=== PATIENT | female | born 1930 | race Caucasian/White ===

== ENCOUNTER 2017-04-08 07:38 | Inpatient (IN) | payer MEDICARE, BC ==
[2017-04-08] MEDS ORDERED: Aspirin 81 MG Tab.EC PO SCH (08:00)
--- NOTE | 2017-04-08 08:17 | EDM.PDOC ---
<Nava Beasley - Last Filed: 04/08/17 08:12> ED HPI GENERAL MEDICAL PROBLEM - General Stated Complaint: NAUSEA Time Seen by Provider: 04/08/17 08:00 Source of Information: Reports: Patient History Limitations: Reports: No Limitations - History of Present Illness INITIAL COMMENTS - FREE TEXT/NARRATIVE: Has been losing weight for several months and is scheduled for EGD on Thursday. On thursday she ate breakfast and then she became nauseated and has not been able to keep things down since. She feels weak and nauseated. CT scans have been negative in the recent past. No edema or SOB with it. No diarrhea or constipation. Doesn't feel that she has had a fever. Onset: Gradual Location: Reports: Abdomen Associated Symptoms: Denies: Fever/Chills, Shortness of Breath - Related Data Allergies Allergy/AdvReac Type Severity Reaction Status Date / Time No Known Allergies Allergy Verified 04/08/17 08:30 Home Meds: Home Meds Aspirin [Abdiel Chewable Aspirin] 81 mg PO DAILY 12/14/13 [History] Ferrous Sulfate [Iron] 325 mg PO DAILY 12/14/13 [History] Lactobacillus Acidophilus [Acidophilus Lactobacillus] 1 tab PO DAILY 12/14/13 [ History] Lutein 1 tab PO DAILY 12/14/13 [History] Metoprolol Succinate [Toprol XL 100mg] 100 mg PO DAILY 12/14/13 [History] Metoprolol Succinate [Toprol XL] 50 mg PO BEDTIME 12/14/13 [History] Quinapril [Accupril] 20 mg PO DAILY 12/14/13 [History] atorvaSTATin [Lipitor] 40 mg PO BEDTIME 12/14/13 [History] metFORMIN HCl [Metformin HCl] 500 mg PO BIDM 12/15/13 [History] Past Medical History Gastrointestinal History: Reports: Other (See Below) (weight loss) Social & Family History - Tobacco Use Second Hand Smoke Exposure: No - Recreational Drug Use Recreational Drug Use: No - Living Situation & Occupation Living situation: Reports: Occupation: Retired ED ROS GENERAL - Review of Systems Review Of Systems: See Below Constitutional: Denies: Fever, Chills Respiratory: Denies: Shortness of Breath, Cough Cardiovascular: Denies: Chest Pain GI/Abdominal: Reports: Abdominal Pain, Nausea, Vomiting, Other (weight loss). Denies: Constipation, Diarrhea : Denies: Dysuria, Flank Pain, Frequency Musculoskeletal: Denies: Back Pain Skin: Denies: Rash Neurological: Reports: No Symptoms ED EXAM, GI/ABD - Physical Exam Exam: See Below Exam Limited By: No Limitations General Appearance: Alert, Mild Distress Ears: Normal External Exam, Normal Canal Nose: Normal Inspection Throat/Mouth: Normal Inspection, Normal Oropharynx Head: Atraumatic, Normocephalic Neck: Normal Inspection, Supple, Non-Tender, Full Range of Motion Respiratory/Chest: No Respiratory Distress, Lungs Clear, Normal Breath Sounds Cardiovascular: Regular Rate, Rhythm, No Edema, Diastolic Murmur GI/Abdominal: Normal Bowel Sounds, Soft, Tenderness. No: Distention, Guarding, Rebound Back Exam: Normal Inspection, Full Range of Motion Extremities: Normal Inspection, Normal Range of Motion, No Pedal Edema, Normal Capillary Refill Neurological: Alert, Oriented Skin Exam: Warm, Dry, Intact Course - Vital Signs Last Recorded V/S: Last Vital Signs Temp 98.3 F 04/08/17 08:04 Pulse 113 H 04/08/17 08:04 Resp 18 04/08/17 08:04 BP 116/84 04/08/17 08:04 Pulse Ox 96 04/08/17 08:04 - Orders/Labs/Meds Orders: Active Orders 24 hr Category Date Time Status Patient Status Manage Transfer [TRANSFER] Routine ADT 04/08/17 09:43 Ordered Abdomen 2V AP Flat Upright [CR] Stat Exams 04/08/17 08:11 Taken Resuscitation Status Routine Resus Stat 04/08/17 09:44 Ordered Labs: Laboratory Tests 04/08/17 04/08/17 04/08/17 Range/Units 08:10 08:10 08:27 WBC 9.8 (5.0-10.0) 10^3/uL RBC 3.61 L (4.00-5.50) 10^6/uL Hgb 10.4 L (12.0-16.0) g/dL Hct 31.4 L (37.0-47.0) % MCV 87.0 (82.0-94.0) fL MCH 28.8 (27.0-32.0) pg MCHC 33.1 (33.0-38.0) g/dL RDW Coeff of Chrissy 14.0 (11.0-15.0) % Plt Count 371 (150-400) 10^3/uL Neut % (Auto) 84.0 (35-85) % Lymph % (Auto) 7.9 L (10-55) % [place] % (Auto) 8.1 (0-16) % Eos % (Auto) 0 (0-5) % Baso % (Auto) 0 (0-3) % Neut # (Auto) 8.24 H (1.80-7.00) 10^3/uL Lymph # (Auto) 0.77 L (1.00-4.80) 10^3/uL [place] # (Auto) 0.79 (0.00-0.80) 10^3/uL Eos # (Auto) 0.00 (0.00-0.45) 10^3/uL Baso # (Auto) 0.00 10^3/uL Sodium 129 L (136-145) mEq/L Potassium 4.4 (3.5-5.0) mEq/L Chloride 95 L (98-106) mEq/L Carbon Dioxide 21 (21-32) mmol/L BUN 18 (7-18) mg/dL Creatinine 0.7 (0.6-1.0) mg/dL Est Cr Clr Drug Dosing 46.47 mL/min Estimated GFR (MDRD) > 60 (>=60) mL/min Glucose 179 H D (75-99) mg/dL Calcium 9.0 (8.4-10.1) mg/dL Total Bilirubin 0.6 (0.0-1.0) mg/dL AST 29 (15-37) U/L ALT 31 (12-78) U/L Alkaline Phosphatase 137 H (46-116) U/L C-Reactive Protein 1.3 H (0.2-0.8) mg/dL Total Protein 6.1 L (6.4-8.2) g/dL Albumin 2.8 L (3.4-5.0) g/dL Amylase 42 (25-115) U/L Urine Color Yellow (YELLOW) Urine Appearance Clear (CLEAR) Urine pH 5.5 (4.5-8.0) Ur Specific [place] 1.020 (1.003-1.020) Urine Protein 30 H (NEGATIVE) mg/dL Urine Glucose (UA) Negative (NEGATIVE) mg/dL Urine Ketones 15 H (NEGATIVE) mg/dL Urine Occult Blood Negative (NEGATIVE) Urine Nitrite Negative (NEGATIVE) Urine Bilirubin Small H (NEGATIVE) Urine Urobilinogen 0.2 (0.2-1.0) EU/dL Ur Leukocyte Esterase Negative (NEGATIVE) Urine RBC 0-5 (0-5) /HPF Urine WBC 5-10 H (0-5) /HPF Urine Bacteria Few H (NOT SEEN) /HPF Departure - Departure Disposition: Refer to Observation Clinical Impression: UTI, Urinary tract infectious disease, Hyponatremia, Weakness generalized - Discharge Information - My Orders Last 24 Hours: My Active Orders 04/08/17 09:43 Patient Status Manage Transfer [TRANSFER] Routine 04/08/17 09:44 Resuscitation Status Routine - Assessment/Plan Last 24 Hours: My Active Orders 04/08/17 09:43 Patient Status Manage Transfer [TRANSFER] Routine 04/08/17 09:44 Resuscitation Status Routine <Angel Beasley - Last Filed: 04/08/17 09:52> Departure - Departure Time of Disposition: 09:50 Condition: fair - Problem List & Annotations (1) Hyponatremia SNOMED Code(s): 30183642 Code(s): E87.1 - HYPO-OSMOLALITY AND HYPONATREMIA Status: Acute Current Visit: Yes (2) UTI, Urinary tract infectious disease SNOMED Code(s): 23560312 Code(s): N39.0 - URINARY TRACT INFECTION, SITE NOT SPECIFIED Status: Acute Current Visit: Yes (3) Weakness generalized SNOMED Code(s): 88482768 Code(s): R53.1 - WEAKNESS Status: Acute Current Visit: Yes - Assessment/Plan Admission H&P: Please use this note as an admission H&P Plan: Nava handed off care d/t being off call. I reviewed her laboratory work and discussed with Valarie her current condition. D/t the weakness and UTI, will admit observation to Dr. Causey's services. Dr. Causey is currently out of the office and discussed case with Dr. Mcclure who agreed with admission. Will obtain urine culture and check BMP daily. Valarie was in agreement and transferred to floor in satisfactory condition.
[2017-04-08 08:43] LABS: CHLORIDE,CL 95 mEq/L (98-106); SODIUM,NA 129 mEq/L (136-145)
[2017-04-08] MEDS ORDERED: Magnesium Hydroxide 400 MG/5 ML Susp 30 ML Cup PO PRN (10:05)
[2017-04-08] MEDS ORDERED: Temazepam 15 MG Cap PO PRN (10:05)
[2017-04-08] MEDS ORDERED: Acetaminophen 325 MG Tab PO PRN (10:05)
[2017-04-08] MEDS: Sodium Chloride 0.9% 1,000 ML IV SCH (10:57)
[2017-04-08] MEDS: cefTRIAXone 1 GM Vial IVPUSH SCH (10:57)
[2017-04-08] MEDS: Ondansetron 4 MG/2 ML SDV IV PRN ×3 (11:03→20:20)
[2017-04-08] MEDS: Enoxaparin 30 MG/0.3 ML Syringe SUBCUT SCH (11:23)
[2017-04-08] MEDS: METFORMIN 500 MG PO SCH ×2 (12:43→18:32)
[2017-04-08] MEDS: LUTEIN 20 MG PO SCH (12:43)
[2017-04-08] MEDS: [UNRECOGNIZED DRUG - OTHER] PO SCH (12:43)
[2017-04-08] MEDS: QUINAPRIL 40 MG PO SCH (12:54)
[2017-04-08] MEDS: METOPROLOL SUCCINATE 100 MG PO SCH ×2 (12:55→20:12)
[2017-04-08] MEDS: traMADol 50 MG Tab PO PRN ×2 (14:43→21:03)
[2017-04-08] MEDS: ATORVASTATIN 80 MG PO SCH (20:11)
[2017-04-09] MEDS: Ondansetron 4 MG/2 ML SDV IV PRN ×4 (04:31→20:46)
[2017-04-09] MEDS: Sodium Chloride 0.9% 1,000 ML IV SCH (06:02)
[2017-04-09] MEDS: Ferrous Sulfate 324 MG Tab.EC PO SCH (07:18)
[2017-04-09] MEDS: [UNRECOGNIZED DRUG - OTHER] PO SCH (07:19)
[2017-04-09] MEDS: METFORMIN 500 MG PO SCH (07:19)
[2017-04-09] MEDS: LUTEIN 20 MG PO SCH (07:19)
[2017-04-09] MEDS: cefTRIAXone 1 GM Vial IVPUSH SCH (07:22)
[2017-04-09 07:42] LABS: CHLORIDE,CL 98 mEq/L (98-106); SODIUM,NA 131 mEq/L (136-145)
[2017-04-09] MEDS: Enoxaparin 30 MG/0.3 ML Syringe SUBCUT SCH (08:38)
[2017-04-09] MEDS: Pantoprazole 40 MG Vial IVPUSH SCH (09:42)
[2017-04-09] MEDS: QUINAPRIL 40 MG PO SCH (09:43)
[2017-04-09] MEDS: METOPROLOL SUCCINATE 100 MG PO SCH ×2 (09:56→20:45)
--- NOTE | 2017-04-09 14:05 | PN ---
DATE: 04/09/2017 S: Valarie is an 87-year-old female, who was admitted yesterday to the hospital with hyponatremia, UTI, generalized weakness, and nausea with decreased appetite. She has been dealing with the nausea and unable to eat for the last few months. She is scheduled for EGD on Thursday with Dr. Sid Causey. She did eat her breakfast on Thursday and has not been able to really keep anything down since then. She continues to have some abdominal discomfort during her stay. So far she has not had any active episodes of emesis. However, just has no appetite whatsoever. She has not had diarrhea, no constipation. O: VITAL SIGNS: Have been stable. Her blood pressure is 161/83 with a respiratory rate of 20, O2 is 95% on room air, temperature 97.3. GENERAL: Pleasant, cooperative female, sitting comfortably, complaining of some epigastric abdominal discomfort. Some dizziness. HEENT: Grossly unremarkable. LUNGS: Clear to auscultation. Adventitious sounds. CARDIAC: Regular. ABDOMEN: Soft. Mild tenderness throughout. No organomegaly. No guarding or rigidity. EXTREMITIES: No pedal edema is noted. LABORATORY DATA: Laboratory work has also been fairly grossly unremarkable. Sodium is up to 131 from 129 yesterday. CRP was mildly elevated at 1.3, alkaline phosphatase mildly elevated at 137. She did have 5-10 WBCs with some bacteria which we do currently have a culture pending on her urine. ASSESSMENT: 1. ONGOING EPIGASTRIC ABDOMINAL DISCOMFORT. 2. HYPONATREMIA, IMPROVING. 3. URINARY TRACT INFECTION. P: We will discontinue her metformin at this point in time. We will start her on IV Protonix as well. Dr. Causey was in the room discussing with Valarie current treatment plan. They will plan on doing an EGD tomorrow. We will just closely monitor her during her stay as well. Dr. Causey did also order a soft tissue of the neck. FRANCISCO/MODL /[id number]
[2017-04-09] MEDS: ATORVASTATIN 80 MG PO SCH (20:46)
[2017-04-09] MEDS: traMADol 50 MG Tab PO PRN (20:55)
[2017-04-10] MEDS ORDERED: Lactated Ringers 1,000 ML IV SCH (06:30)
[2017-04-10 07:28] LABS: CHLORIDE,CL 98 mEq/L (98-106); SODIUM,NA 133 mEq/L (136-145)
[2017-04-10 07:34] VITALS: BP 150/74
[2017-04-10] MEDS: LUTEIN 20 MG PO SCH (08:41)
[2017-04-10] MEDS: Ferrous Sulfate 324 MG Tab.EC PO SCH (08:41)
[2017-04-10] MEDS: [UNRECOGNIZED DRUG - OTHER] PO SCH (08:41)
[2017-04-10] MEDS: Pantoprazole 40 MG Vial IVPUSH SCH (09:17)
[2017-04-10] MEDS: METOPROLOL SUCCINATE 100 MG PO SCH (09:18)
[2017-04-10] MEDS: QUINAPRIL 40 MG PO SCH (09:18)
[2017-04-10] MEDS: cefTRIAXone 1 GM Vial IVPUSH SCH (09:19)
[2017-04-10] MEDS: Enoxaparin 30 MG/0.3 ML Syringe SUBCUT SCH (09:19)
--- NOTE | 2017-04-13 07:07 | DISCH ---
ADMISSION DIAGNOSES: 1. Urinary tract infection. 2. Hyponatremia. 3. Generalized weakness. DISCHARGE DIAGNOSIS: 1. HYPONATREMIA, RESOLVED. 2. 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 HISTORY: The patient is an 87-year-old, the patient of Nava Beasley, who has been having some ongoing issues with fatigue and malaise. She has had some weight loss over the last year. She had a CT scan of her abdomen and pelvis which was normal and a recent CT scan of the chest, which was also normal. She ultimately came back to [facility], [place] for ongoing lethargy, malaise, and weakness. She was admitted with hyponatremia and a possible UTI. She was put in on IV antibiotics and IV fluids. She was previously scheduled for an outpatient EGD, which was accomplished while she was in house. HOSPITAL COURSE: The patient was put on IV Rocephin. Ultimately, her urine culture came back showing no evidence of pathogen and antibiotics have been stopped. 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 She has some stricturing of the EG junction as well. This was very friable and pathology remains pending. Family is present including a son from the [place]. Long discussion with both the patient and family have been accomplished. I was able to get a hold of Oncology at [facility]. They are arranging GI/Surgery consultation early next week and I am going to touch with the family. The patient feels comfortable going home. She is going to try to continue to hydrate with liquids and drink Ensure boost until definitive therapy can be accomplished. COMPLICATIONS: During her stay were none. CONSULTATIONS: None. PROCEDURES: Esophagogastroduodenoscopy. DISPOSITION: Discharged home under family care. CLEMENCIA/JAVIER /[id number]
== END 2017-04-10 11:25 | disposition home or self-care (01) | DRG 641 ==
LOC: CC.ED 07:38 → UNDOADMOB 09:52 → CC.MS 09:52 → OBSVTOIN 04-09 12:04
PROVIDERS: ADMIT Physician Assistant Medical; ATTEND Family Medicine
PROC: 0DB68ZX Excision of Stomach, Via Natural or Artificial Opening Endoscopic, Diagnostic (ICD-10-PCS; principal; 2017-04-10)
DX: E87.1 Hypo-osmolality and hyponatremia (principal); C16.1 Malignant neoplasm of fundus of stomach; N39.0 Urinary tract infection, site not specified; R19.09 Other intra-abdominal and pelvic swelling, mass and lump; R53.1 Weakness; E04.1 Nontoxic single thyroid nodule; R10.9 Unspecified abdominal pain; Z79.82 Long term (current) use of aspirin; R63.4 Abnormal weight loss; R13.10 Dysphagia, unspecified; I50.9 Heart failure, unspecified; Z68.22 Body mass index [BMI] 22.0-22.9, adult; Z79.899 Other long term (current) drug therapy
CPT/HCPCS: 36415 ×2; 74020; 76536; 80048; 80053; 81001; 82150; 82962 ×3; 85025; 86140; 87086; 96361 ×2; 96374; 96375 ×2; 96376 ×2; 97161; 99220; 99284; A9270 ×8; C9113; G0378; J0696 ×2; J2405 ×5; J7030 ×2; 00740; 88305; 88342; J7120

== ENCOUNTER 2017-05-13 10:10 | Inpatient (IN) | payer MEDICARE, BC ==
[2017-05-13] MEDS ORDERED: Lactated Ringers 1,000 ML IV SCH (10:30)
[2017-05-13] MEDS ORDERED: Ondansetron 8 MG in Sodium Chloride 0.9% 50 ML IV ONE (10:30)
[2017-05-13 10:57] LABS: SODIUM,NA 126 mEq/L (136-145)
[2017-05-13 11:07] LABS: CHLORIDE,CL 92 mEq/L (98-106)
[2017-05-13] MEDS ORDERED: Magnesium Sulfate/D5W 2 GM in Premix Bag 1 BAG IV ONE (11:45)
[2017-05-13] MEDS ORDERED: Potassium Chloride 40 MEQ in Premix Bag 1 BAG IV ONE (12:00)
[2017-05-13] MEDS: Sodium Chloride 0.9% 1,000 ML IV SCH ×2 (12:03→22:33)
[2017-05-13] MEDS ORDERED: Acetaminophen 325 MG Tab PO PRN (14:18)
[2017-05-13] MEDS ORDERED: Docusate Sodium 100 MG Cap PO PRN (14:18)
[2017-05-13] MEDS ORDERED: Prochlorperazine 10 MG Tab PO PRN (14:22)
[2017-05-13] MEDS ORDERED: Enoxaparin 30 MG/0.3 ML Syringe SUBCUT SCH (15:00)
[2017-05-13] MEDS: Ondansetron 4 MG/2 ML SDV IV PRN (16:35)
[2017-05-13] MEDS ORDERED: Pantoprazole 40 MG Vial IV ONE (17:00)
[2017-05-13] MEDS: Metoprolol Succinate 25 MG Tab.ER PO SCH (20:00)
[2017-05-14] MEDS: Ondansetron 4 MG/2 ML SDV IV PRN ×2 (06:10→10:10)
[2017-05-14] MEDS: Sodium Chloride 0.9% 1,000 ML IV SCH (06:11)
[2017-05-14 07:41] LABS: CHLORIDE,CL 99 mEq/L (98-106); SODIUM,NA 132 mEq/L (136-145)
[2017-05-14] MEDS ORDERED: Magnesium Sulfate/D5W 2 GM in Premix Bag 1 BAG IV ONE (08:00)
[2017-05-14] MEDS ORDERED: Aspirin 81 MG Tab.EC PO SCH (08:00)
[2017-05-14] MEDS ORDERED: Lisinopril 20 MG Tab PO SCH (08:00)
[2017-05-14] MEDS: Pantoprazole 40 MG Vial IVPUSH SCH (08:41)
[2017-05-14] MEDS: Ferrous Sulfate 324 MG Tab.EC PO SCH (08:42)
[2017-05-14] MEDS: Lisinopril 20 MG Tab PO SCH (08:42)
[2017-05-14] MEDS: Mupirocin Oint 22 GM Tube TOP SCH ×3 (08:55→20:23)
[2017-05-14] MEDS: Metoprolol Succinate 100 MG Tab.ER PO SCH (08:55)
[2017-05-14] MEDS: LUTEIN 20 MG PO SCH (09:06)
[2017-05-14] MEDS ORDERED: Sodium Chloride 0.9% 500 ML IV ONE (10:00)
[2017-05-14] MEDS ORDERED: Potassium Chloride 80 MEQ in Premix Bag 1 BAG IV ONE (10:00)
--- NOTE | 2017-05-14 10:10 | PN ---
DATE: 05/14/2017 S: Valarie was admitted yesterday for hypokalemia, hypomagnesemia, and overall decline after her chemotherapy. She is very weak and lethargic. She was admitted for electrolyte replacement. At the time of admission, her potassium was 2.9. She has actually declined at 2.5 today. Magnesium is up slightly from 1 to 1.2. Rest of her CBC looks stable and she has not spiked any temps. She has been a little tachycardic but improved. Blood pressures this morning 136/49. She is very despondent over her condition, talks today frequently about stopping her chemo, and we had a long conversation in that regard. O: GENERAL: She is a pleasant and cooperative. HEENT: Grossly benign. She has a little bit of dry blood in her lower lip and under her teeth onto her dentition from the night. NECK: Supple. I do not feel adenopathy. LUNGS: Sounds diminished but clear. CARDIAC: Tones are regular. She does not appear to have abdominal pain to palpation. No peripheral edema is seen. ASSESSMENT: 1. HYPOKALEMIA. 2. HYPOMAGNESEMIA. 3. GASTRIC CANCER. P: We will give her two bumps a day of 40 mEq KCl, give another 2 g of mag sulfate as well. We will recheck a panel eight again tomorrow. She does have a little bit of desquamation and erythema around her G-tube site. We will put her on some Bactroban ointment as well. CLEMENCIA/JAVIER /[id number]
[2017-05-14] MEDS: Morphine 2 MG/ML Syringe IVPUSH PRN ×2 (10:17→13:10)
[2017-05-14] MEDS: Metoprolol Succinate 25 MG Tab.ER PO SCH (20:22)
[2017-05-14] MEDS: Enoxaparin 40 MG/0.4 ML Syringe SUBCUT SCH (20:23)
[2017-05-15] MEDS: Ondansetron 4 MG/2 ML SDV IV PRN ×3 (06:49→19:51)
[2017-05-15 07:38] LABS: CHLORIDE,CL 107 mEq/L (98-106); SODIUM,NA 138 mEq/L (136-145)
[2017-05-15] MEDS: Mupirocin Oint 22 GM Tube TOP SCH ×3 (08:04→19:57)
[2017-05-15] MEDS: Ferrous Sulfate 324 MG Tab.EC PO SCH (08:05)
[2017-05-15] MEDS: LUTEIN 20 MG PO SCH (08:06)
[2017-05-15] MEDS: Metoprolol Succinate 100 MG Tab.ER PO SCH (08:06)
[2017-05-15] MEDS: Lisinopril 20 MG Tab PO SCH (08:06)
[2017-05-15] MEDS: Pantoprazole 40 MG Vial IVPUSH SCH (08:07)
[2017-05-15] MEDS ORDERED: Sodium Chloride 0.9% 500 ML IV ONE (09:00)
[2017-05-15] MEDS ORDERED: Potassium Chloride 80 MEQ in Premix Bag 1 BAG IV ONE (09:00)
[2017-05-15] MEDS ORDERED: Magnesium Sulfate/D5W 2 GM in Premix Bag 1 BAG IV ONE (09:15)
--- NOTE | 2017-05-15 12:48 | PN ---
DATE: 05/15/2017 S: Ms. Thomas has family present today. Yesterday, she did talk about the fact she does not feel she can tolerate any further chemotherapy. She has a followup with Oncology this upcoming Thursday. The patient has had stable vital signs, since here, she continues to have a lot of liquid diarrhea stools. We are having stool studies and C. diff accomplished today, otherwise, she has been afebrile. Potassium came up slightly from 2.5 to 2.8. Magnesium level is pending. O: GENERAL: She is pleasant, alert, and cooperative. HEENT: Grossly benign. NECK: Supple. Veins are flat. LUNGS: Sounds are clear albeit diminished. CARDIAC: Tones are regular. ABDOMEN: Nontender. No peripheral edema is seen. ASSESSMENT: 1. HYPOKALEMIA. 2. HYPOMAGNESEMIA. 3. GASTRIC CANCER. 4. DIARRHEA. P: We will repeat 80 mEq potassium today over the next 8 to 12 hours. Magnesium level is pending and will be replaced as needed. We will get stool studies including a C. diff. Family members are present, long conversation with them about her upcoming appointment on Thursday, and possibility of different options discussed at length. CLEMENCIA/JAVIER /[id number]
[2017-05-15] MEDS: Metoprolol Succinate 25 MG Tab.ER PO SCH (19:54)
[2017-05-15] MEDS: Enoxaparin 40 MG/0.4 ML Syringe SUBCUT SCH (19:55)
[2017-05-15] MEDS: Morphine 2 MG/ML Syringe IVPUSH PRN (19:58)
[2017-05-16] MEDS: Pantoprazole 40 MG Vial IVPUSH SCH (07:33)
[2017-05-16] MEDS: Morphine 2 MG/ML Syringe IVPUSH PRN ×2 (07:45→13:57)
[2017-05-16] MEDS: Mupirocin Oint 22 GM Tube TOP SCH ×3 (07:50→19:34)
[2017-05-16] MEDS: Lisinopril 20 MG Tab PO SCH ×2 (07:54→08:00)
[2017-05-16] MEDS: Ferrous Sulfate 324 MG Tab.EC PO SCH ×2 (07:55→08:00)
[2017-05-16] MEDS: Metoprolol Succinate 100 MG Tab.ER PO SCH ×2 (07:55→08:00)
[2017-05-16] MEDS ORDERED: Menthol/Zinc Oxide Ointment 113 GM Tube TOP PRN (07:56)
[2017-05-16 08:05] LABS: CHLORIDE,CL 107 mEq/L (98-106); SODIUM,NA 140 mEq/L (136-145)
[2017-05-16] MEDS ORDERED: Potassium Chloride 20 MEQ in Premix Bag 1 BAG IV ONE (08:22)
--- NOTE | 2017-05-16 08:33 | PCM.PN ---
- General Info Date of Service: 05/16/17 Admission Dx/Problem (Free Text): Lying in bed resting. Appears pale and weak. States she feels better since getting pain meds. BBS clear, abd soft, skin warma and dry, normal heart tones. Tube feeding infusing per peg tube. Serum potasium 2.9 this morning, will continue to replace, and start elixir through peg tube. Hemoglobin up today from yesterday, will hold off on PRBC for now. Will repeat serum mag. Will continue on current course, and monitor closely. Functional Status: Reports: pain controlled - Review of Systems General: Reports: No Symptoms HEENT: Reports: no symptoms Pulmonary: Reports: no symptoms Cardiovascular: Reports: No Symptoms Gastrointestinal: Reports: No symptoms Genitourinary: Reports: no symptoms Musculoskeletal: Reports: no symptoms Skin: Reports: pallor Neurological: Reports: No Symptoms Psychiatric: Reports: no symptoms - Patient Data Vitals - most recent: Last Vital Signs Temp 97.3 F 05/16/17 07:26 Pulse 102 H 05/16/17 07:55 Resp 16 05/16/17 07:26 BP 180/84 H 05/16/17 07:55 Pulse Ox 94 L 05/16/17 07:26 Weight - most recent: 126 lb 1.6 oz I&O - last 24 hours: Intake & Output 05/15/17 05/16/17 05/16/17 22:59 06:59 14:59 Intake Total 1120 120 Balance 1120 120 Lab Results last 24 hrs: Laboratory Results - last 24 hr 05/15/17 05/16/17 05/16/17 Range/Units 08:58 07:45 07:45 WBC 7.1 (5.0-10.0) 10^3/uL RBC 2.78 L (4.00-5.50) 10^6/uL Hgb 8.2 L (12.0-16.0) g/dL Hct 25.0 L (37.0-47.0) % MCV 89.9 (82.0-94.0) fL MCH 29.5 (27.0-32.0) pg MCHC 32.8 L (33.0-38.0) g/dL RDW Coeff of Chrissy 17.0 H (11.0-15.0) % Plt Count 379 (150-400) 10^3/uL Add Manual Diff Yes Neutrophils % (Manual) 71 (35-85) % Band Neutrophils % 3 (0-5) % Lymphocytes % (Manual) 12 L (21-55) % Monocytes % (Manual) 14 H (2-12) % Absolute Neutrophils 5.25 (1.80-7.00) 10^3/uL Lymphocytes # (Manual) 0.85 L (1.00-4.80) 10^3/uL Monocytes # (Manual) 0.99 H (0.00-0.80) 10^3/uL Sodium 140 (136-145) mEq/L Potassium 2.9 L* (3.5-5.0) mEq/L Chloride 107 H (98-106) mEq/L Carbon Dioxide 22 (21-32) mmol/L BUN 11 (7-18) mg/dL Creatinine 0.5 L (0.6-1.0) mg/dL Est Cr Clr Drug Dosing 64.50 mL/min Estimated GFR (MDRD) > 60 (>=60) mL/min Glucose 186 H (75-99) mg/dL Calcium 8.4 (8.4-10.1) mg/dL Magnesium 1.4 L (1.8-2.4) mg/dL Alejandro Results last 24 hrs: Microbiology 05/15/17 09:10 C. difficile DNA Amplification - Final Stool / Feces - Stool, Liquid NEGATIVE CDIFF BY DNA Med Orders - Current: Current Medications Acetaminophen (Tylenol) 650 mg PO Q4H PRN PRN Reason: Pain (Mild 1-3)/fever Calamine/Phenol (Calmoseptine) 0 gm TOP QID PRN PRN Reason: skin irritation Docusate Sodium (Colace) 100 mg PO BID PRN PRN Reason: Constipation Enoxaparin Sodium (Lovenox) 40 mg SUBCUT Q24H [facility] Last Admin: 05/15/17 19:55 Dose: 40 mg Ferrous Sulfate (Ferrous Sulfate) 324 mg PO DAILY [facility] Last Admin: 05/16/17 07:55 Dose: 324 mg Potassium Chloride 20 meq/ (Premix) 100 mls @ 25 mls/hr IV ONETIME ONE Stop: 05/16/17 12:21 Lisinopril (Prinivil) 20 mg PO DAILY [facility] Last Admin: 05/16/17 07:54 Dose: 20 mg Metoprolol Succinate (Toprol Xl) 50 mg PO BEDTIME [facility] Last Admin: 05/15/17 19:54 Dose: 50 mg Metoprolol Succinate (Toprol Xl) 100 mg PO DAILY [facility] Last Admin: 05/16/17 07:55 Dose: 100 mg Morphine Sulfate (Morphine) 1 - 2 mg IVPUSH Q2H PRN PRN Reason: Pain Last Admin: 05/16/17 07:45 Dose: 2 mg Mupirocin (Bactroban Oint) 0 gm TOP TID [facility] Last Admin: 05/16/17 07:50 Dose: 1 applic Ondansetron HCl (Zofran) 4 mg IV Q4H PRN PRN Reason: Nausea/Vomiting Last Admin: 05/15/17 19:51 Dose: 4 mg Pantoprazole Sodium (Protonix Iv) 40 mg IVPUSH Q24H [facility] Last Admin: 05/16/17 07:33 Dose: 40 mg Potassium Chloride (Potassium Chloride Solution) 20 meq PO BIDMEALS [facility] Prochlorperazine Maleate (Compazine) 10 mg PO Q6H PRN PRN Reason: Nausea Last Admin: 05/16/17 07:04 Dose: 10 mg Discontinued Medications Aspirin (Halfprin) 81 mg PO DAILY [facility] Enoxaparin Sodium (Lovenox) 30 mg SUBCUT Q24H [facility] Last Admin: 05/13/17 15:13 Dose: 30 mg Ondansetron HCl 8 mg/ Sodium (Chloride) 54 mls @ 100 mls/hr IV ONETIME ONE Stop: 05/13/17 11:02 Last Admin: 05/13/17 10:49 Dose: 100 mls/hr Lactated Ringer's (Ringers, Lactated) 1,000 mls @ 125 mls/hr IV ASDIRECTED [facility] Last Admin: 05/13/17 10:47 Dose: 125 mls/hr Magnesium Sulfate/Dextrose 2 (gm/ Premix) 200 mls @ 100 mls/hr IV ONETIME ONE Stop: 05/13/17 13:44 Last Admin: 05/13/17 12:05 Dose: 100 mls/hr Sodium Chloride (Normal Saline) 1,000 mls @ 125 mls/hr IV ASDIRECTED [facility] Last Admin: 05/14/17 06:11 Dose: 125 mls/hr Potassium Chloride 40 meq/ (Premix) 100 mls @ 25 mls/hr IV ONETIME ONE Stop: 05/13/17 15:59 Last Admin: 05/13/17 14:33 Dose: 25 mls/hr Magnesium Sulfate/Dextrose 2 (gm/ Premix) 200 mls @ 100 mls/hr IV ONETIME ONE Stop: 05/14/17 09:59 Last Admin: 05/14/17 08:43 Dose: 100 mls/hr Sodium Chloride (Normal Saline) 500 mls @ 41.667 mls/hr IV ONETIME ONE Stop: 05/14/17 21:59 Last Admin: 05/14/17 10:24 Dose: 41.667 mls/hr Potassium Chloride 80 meq/ (Premix) 200 mls @ 16.667 mls/hr IV ONETIME ONE Stop: 05/14/17 21:59 Last Admin: 05/14/17 10:24 Dose: 16.667 mls/hr Sodium Chloride (Normal Saline) 500 mls @ 41.667 mls/hr IV ONETIME ONE Stop: 05/15/17 20:59 Last Admin: 05/15/17 09:55 Dose: 41.667 mls/hr Potassium Chloride 80 meq/ (Premix) 200 mls @ 16.667 mls/hr IV ONETIME ONE Stop: 05/15/17 20:59 Last Admin: 05/15/17 10:01 Dose: 16.667 mls/hr Magnesium Sulfate/Dextrose 2 (gm/ Premix) 200 mls @ 100 mls/hr IV ONETIME ONE Stop: 05/15/17 11:14 Last Admin: 05/15/17 10:09 Dose: 100 mls/hr Lisinopril (Prinivil) 40 mg PO DAILY [facility] Lutein 20mgOwn Med () 1 tab PO DAILY [facility] Last Admin: 05/15/17 08:06 Dose: Not Given Pantoprazole Sodium (Protonix Iv) 40 mg IV ONETIME ONE Stop: 05/13/17 17:01 Last Admin: 05/13/17 17:07 Dose: 40 mg - Problem List Review Problem List Initiated/Reviewed/Updated: Yes - My Orders Last 24 Hours: My Active Orders 05/16/17 07:56 Menthol/Zinc Oxide [Calmoseptine] 0 gm TOP QID PRN 05/16/17 08:18 MAGNESIUM [CHEM] Routine 05/16/17 08:22 Potassium Chloride [KCL 20 MEQ in Water 100 ML] 20 meq Premix Bag 1 bag IV ONETIME 05/16/17 17:30 Potassium Chloride [Potassium Chloride Solution] 20 meq PO BIDMEALS 05/17/17 08:26 CBC WITH AUTO DIFF [HEME] DAILY COMPREHENSIVE METABOLIC PN,CMP [CHEM] DAILY MAGNESIUM [CHEM] DAILY
[2017-05-16] MEDS: Ondansetron 4 MG/2 ML SDV IV PRN (08:51)
[2017-05-16] MEDS ORDERED: Magnesium Sulfate/D5W 2 GM in Premix Bag 1 BAG IV ONE (09:01)
[2017-05-16] MEDS: Potassium Chloride 10% 20 MEQ/15 ML Soln 15 ML UD Cup PO SCH (17:11)
[2017-05-16] MEDS: Metoprolol Succinate 25 MG Tab.ER PO SCH (19:34)
[2017-05-16] MEDS: Enoxaparin 40 MG/0.4 ML Syringe SUBCUT SCH (19:34)
[2017-05-17] MEDS: Morphine 2 MG/ML Syringe IVPUSH PRN ×7 (05:14→19:18)
[2017-05-17] MEDS: Ondansetron 4 MG/2 ML SDV IV PRN ×2 (07:48→16:58)
[2017-05-17] MEDS: Pantoprazole 40 MG Vial IVPUSH SCH (07:52)
[2017-05-17] MEDS: Mupirocin Oint 22 GM Tube TOP SCH ×3 (08:06→20:03)
[2017-05-17] MEDS: Ferrous Sulfate 324 MG Tab.EC PO SCH (08:06)
[2017-05-17] MEDS: Potassium Chloride 10% 20 MEQ/15 ML Soln 15 ML UD Cup PO SCH ×3 (08:07→17:02)
[2017-05-17] MEDS: Lisinopril 20 MG Tab PO SCH (08:07)
[2017-05-17 08:11] LABS: CHLORIDE,CL 106 mEq/L (98-106); SODIUM,NA 142 mEq/L (136-145)
[2017-05-17] MEDS: Metoprolol Succinate 100 MG Tab.ER PO SCH (08:27)
--- NOTE | 2017-05-17 09:24 | PCM.PN ---
- General Info Date of Service: 05/17/17 Admission Dx/Problem (Free Text): Lying in bed appears very weak. Tube feeding infusing. Patient feels better since pain medications, and denies any needs at this point. I feel like she has given up. Nursing stated that she has mentioned that she no longer wants to cntinue with chemotherapy, nor does she want to go to [place]. Will continue to monitor. Functional Status: Reports: pain controlled - Review of Systems General: Reports: Weakness, Fatigue HEENT: Reports: no symptoms Pulmonary: Reports: no symptoms Cardiovascular: Reports: No Symptoms Gastrointestinal: Reports: No symptoms Genitourinary: Reports: no symptoms - Patient Data Vitals - most recent: Last Vital Signs Temp 96.7 F 05/17/17 08:00 Pulse 78 05/17/17 08:27 Resp 20 05/17/17 08:00 BP 137/104 H 05/17/17 08:27 Pulse Ox 96 05/17/17 08:00 Weight - most recent: 126 lb 1.6 oz I&O - last 24 hours: Intake & Output 05/16/17 05/17/17 05/17/17 22:59 06:59 14:59 Intake Total 1120 Balance 1120 Lab Results last 24 hrs: Laboratory Results - last 24 hr 05/17/17 05/17/17 Range/Units 07:30 07:30 WBC 11.3 H (5.0-10.0) 10^3/uL RBC 2.97 L (4.00-5.50) 10^6/uL Hgb 8.7 L (12.0-16.0) g/dL Hct 26.9 L (37.0-47.0) % MCV 90.6 (82.0-94.0) fL MCH 29.3 (27.0-32.0) pg MCHC 32.3 L (33.0-38.0) g/dL RDW Coeff of Chrissy 17.5 H (11.0-15.0) % Plt Count 480 H (150-400) 10^3/uL Neut % (Auto) 72.8 (35-85) % Lymph % (Auto) 12.1 (10-55) % [place] % (Auto) 14.9 (0-16) % Eos % (Auto) 0.1 (0-5) % Baso % (Auto) 0.1 (0-3) % Neut # (Auto) 8.21 H (1.80-7.00) 10^3/uL Lymph # (Auto) 1.36 (1.00-4.80) 10^3/uL [place] # (Auto) 1.68 H (0.00-0.80) 10^3/uL Eos # (Auto) 0.01 (0.00-0.45) 10^3/uL Baso # (Auto) 0.01 10^3/uL Sodium 142 (136-145) mEq/L Potassium 2.8 L* (3.5-5.0) mEq/L Chloride 106 (98-106) mEq/L Carbon Dioxide 26 (21-32) mmol/L BUN 13 (7-18) mg/dL Creatinine 0.5 L (0.6-1.0) mg/dL Est Cr Clr Drug Dosing 64.50 mL/min Estimated GFR (MDRD) > 60 (>=60) mL/min Glucose 233 H D (75-99) mg/dL Calcium 8.7 (8.4-10.1) mg/dL Magnesium 1.5 L (1.8-2.4) mg/dL Total Bilirubin 0.3 (0.0-1.0) mg/dL AST 17 (15-37) U/L ALT 30 (12-78) U/L Alkaline Phosphatase 136 H (46-116) U/L Total Protein 5.3 L (6.4-8.2) g/dL Albumin 2.0 L (3.4-5.0) g/dL Med Orders - Current: Current Medications Acetaminophen (Tylenol) 650 mg PO Q4H PRN PRN Reason: Pain (Mild 1-3)/fever Calamine/Phenol (Calmoseptine) 0 gm TOP QID PRN PRN Reason: skin irritation Docusate Sodium (Colace) 100 mg PO BID PRN PRN Reason: Constipation Enoxaparin Sodium (Lovenox) 40 mg SUBCUT Q24H [facility] Last Admin: 05/16/17 19:34 Dose: 40 mg Ferrous Sulfate (Ferrous Sulfate) 324 mg PO DAILY [facility] Last Admin: 05/17/17 08:06 Dose: Not Given Lisinopril (Prinivil) 20 mg PO DAILY [facility] Last Admin: 05/17/17 08:07 Dose: 20 mg Metoprolol Succinate (Toprol Xl) 50 mg PO BEDTIME [facility] Last Admin: 05/16/17 19:34 Dose: 50 mg Metoprolol Succinate (Toprol Xl) 100 mg PO DAILY [facility] Last Admin: 05/17/17 08:27 Dose: 100 mg Morphine Sulfate (Morphine) 1 - 2 mg IVPUSH Q2H PRN PRN Reason: Pain Last Admin: 05/17/17 07:45 Dose: 2 mg Mupirocin (Bactroban Oint) 0 gm TOP TID [facility] Last Admin: 05/17/17 08:06 Dose: 1 applic Ondansetron HCl (Zofran) 4 mg IV Q4H PRN PRN Reason: Nausea/Vomiting Last Admin: 05/17/17 07:48 Dose: 4 mg Pantoprazole Sodium (Protonix Iv) 40 mg IVPUSH Q24H [facility] Last Admin: 05/17/17 07:52 Dose: 40 mg Potassium Chloride (Potassium Chloride Solution) 20 meq PO BIDMEALS [facility] Last Admin: 05/17/17 08:07 Dose: 20 meq Prochlorperazine Maleate (Compazine) 10 mg PO Q6H PRN PRN Reason: Nausea Last Admin: 05/16/17 07:04 Dose: 10 mg Discontinued Medications Aspirin (Halfprin) 81 mg PO DAILY [facility] Enoxaparin Sodium (Lovenox) 30 mg SUBCUT Q24H [facility] Last Admin: 05/13/17 15:13 Dose: 30 mg Ondansetron HCl 8 mg/ Sodium (Chloride) 54 mls @ 100 mls/hr IV ONETIME ONE Stop: 05/13/17 11:02 Last Admin: 05/13/17 10:49 Dose: 100 mls/hr Lactated Ringer's (Ringers, Lactated) 1,000 mls @ 125 mls/hr IV ASDIRECTED [facility] Last Admin: 05/13/17 10:47 Dose: 125 mls/hr Magnesium Sulfate/Dextrose 2 (gm/ Premix) 200 mls @ 100 mls/hr IV ONETIME ONE Stop: 05/13/17 13:44 Last Admin: 05/13/17 12:05 Dose: 100 mls/hr Sodium Chloride (Normal Saline) 1,000 mls @ 125 mls/hr IV ASDIRECTED [facility] Last Admin: 05/14/17 06:11 Dose: 125 mls/hr Potassium Chloride 40 meq/ (Premix) 100 mls @ 25 mls/hr IV ONETIME ONE Stop: 05/13/17 15:59 Last Admin: 05/13/17 14:33 Dose: 25 mls/hr Magnesium Sulfate/Dextrose 2 (gm/ Premix) 200 mls @ 100 mls/hr IV ONETIME ONE Stop: 05/14/17 09:59 Last Admin: 05/14/17 08:43 Dose: 100 mls/hr Sodium Chloride (Normal Saline) 500 mls @ 41.667 mls/hr IV ONETIME ONE Stop: 05/14/17 21:59 Last Admin: 05/14/17 10:24 Dose: 41.667 mls/hr Potassium Chloride 80 meq/ (Premix) 200 mls @ 16.667 mls/hr IV ONETIME ONE Stop: 05/14/17 21:59 Last Admin: 05/14/17 10:24 Dose: 16.667 mls/hr Sodium Chloride (Normal Saline) 500 mls @ 41.667 mls/hr IV ONETIME ONE Stop: 05/15/17 20:59 Last Admin: 05/15/17 09:55 Dose: 41.667 mls/hr Potassium Chloride 80 meq/ (Premix) 200 mls @ 16.667 mls/hr IV ONETIME ONE Stop: 05/15/17 20:59 Last Admin: 05/15/17 10:01 Dose: 16.667 mls/hr Magnesium Sulfate/Dextrose 2 (gm/ Premix) 200 mls @ 100 mls/hr IV ONETIME ONE Stop: 05/15/17 11:14 Last Admin: 05/15/17 10:09 Dose: 100 mls/hr Potassium Chloride 20 meq/ (Premix) 100 mls @ 25 mls/hr IV ONETIME ONE Stop: 05/16/17 12:21 Last Admin: 05/16/17 08:56 Dose: 25 mls/hr Magnesium Sulfate/Dextrose 2 (gm/ Premix) 200 mls @ 100 mls/hr IV ONETIME ONE Stop: 05/16/17 11:00 Last Admin: 05/16/17 09:14 Dose: 100 mls/hr Lisinopril (Prinivil) 40 mg PO DAILY [facility] Lutein 20mgOwn Med () 1 tab PO DAILY [facility] Last Admin: 05/15/17 08:06 Dose: Not Given Pantoprazole Sodium (Protonix Iv) 40 mg IV ONETIME ONE Stop: 05/13/17 17:01 Last Admin: 05/13/17 17:07 Dose: 40 mg - Problem List Review Problem List Initiated/Reviewed/Updated: Yes - My Orders Last 24 Hours: My Active Orders 05/16/17 17:30 Potassium Chloride [Potassium Chloride Solution] 20 meq PO BIDMEALS
[2017-05-17] MEDS ORDERED: Magnesium Sulfate/D5W 2 GM in Premix Bag 1 BAG IV ONE (09:29)
[2017-05-17] MEDS ORDERED: Potassium Chloride 20 MEQ in Premix Bag 1 BAG IV ONE (09:59)
[2017-05-17] MEDS ORDERED: HYDROmorphone 1 MG/ML Syringe IVPUSH PRN (19:21)
[2017-05-17] MEDS: Metoprolol Succinate 25 MG Tab.ER PO SCH (20:01)
[2017-05-17] MEDS: Enoxaparin 40 MG/0.4 ML Syringe SUBCUT SCH (20:03)
[2017-05-17 20:10] VITALS: BP 180/111
--- NOTE | 2017-05-17 22:46 | PCM.PN ---
- General Info Admission Dx/Problem (Free Text): Nursing notified me that patient at 22:18 tonight, she was a DNR. Family notified of event. - Patient Data Vitals - most recent: Last Vital Signs Temp 98.2 F 05/17/17 19:48 Pulse 125 H 05/17/17 20:01 Resp 24 H 05/17/17 19:48 BP 180/111 H 05/17/17 20:01 Pulse Ox 95 05/17/17 19:48 Weight - most recent: 126 lb 1.6 oz I&O - last 24 hours: Intake & Output 05/17/17 05/17/17 05/17/17 06:59 14:59 22:59 Intake Total 780 Balance 780 Lab Results last 24 hrs: Laboratory Results - last 24 hr 05/17/17 05/17/17 05/17/17 Range/Units 07:30 07:30 12:35 WBC 11.3 H (5.0-10.0) 10^3/uL RBC 2.97 L (4.00-5.50) 10^6/uL Hgb 8.7 L (12.0-16.0) g/dL Hct 26.9 L (37.0-47.0) % MCV 90.6 (82.0-94.0) fL MCH 29.3 (27.0-32.0) pg MCHC 32.3 L (33.0-38.0) g/dL RDW Coeff of Chrissy 17.5 H (11.0-15.0) % Plt Count 480 H (150-400) 10^3/uL Neut % (Auto) 72.8 (35-85) % Lymph % (Auto) 12.1 (10-55) % [place] % (Auto) 14.9 (0-16) % Eos % (Auto) 0.1 (0-5) % Baso % (Auto) 0.1 (0-3) % Neut # (Auto) 8.21 H (1.80-7.00) 10^3/uL Lymph # (Auto) 1.36 (1.00-4.80) 10^3/uL [place] # (Auto) 1.68 H (0.00-0.80) 10^3/uL Eos # (Auto) 0.01 (0.00-0.45) 10^3/uL Baso # (Auto) 0.01 10^3/uL Sodium 142 (136-145) mEq/L Potassium 2.8 L* (3.5-5.0) mEq/L Chloride 106 (98-106) mEq/L Carbon Dioxide 26 (21-32) mmol/L BUN 13 (7-18) mg/dL Creatinine 0.5 L (0.6-1.0) mg/dL Est Cr Clr Drug Dosing 64.50 mL/min Estimated GFR (MDRD) > 60 (>=60) mL/min Glucose 233 H D (75-99) mg/dL Calcium 8.7 (8.4-10.1) mg/dL Magnesium 1.5 L (1.8-2.4) mg/dL Total Bilirubin 0.3 (0.0-1.0) mg/dL AST 17 (15-37) U/L ALT 30 (12-78) U/L Alkaline Phosphatase 136 H (46-116) U/L Total Protein 5.3 L (6.4-8.2) g/dL Albumin 2.0 L (3.4-5.0) g/dL Urine Color Yellow (YELLOW) Urine Appearance Clear (CLEAR) Urine pH 5.5 (4.5-8.0) Ur Specific [place] 1.013 (1.003-1.020) Urine Protein 30 H (NEGATIVE) mg/dL Urine Glucose (UA) 500 H (NEGATIVE) mg/dL Urine Ketones Negative (NEGATIVE) mg/dL Urine Occult Blood Negative (NEGATIVE) Urine Nitrite Negative (NEGATIVE) Urine Bilirubin Negative (NEGATIVE) Urine Urobilinogen 0.2 (0.2-1.0) EU/dL Ur Leukocyte Esterase Negative (NEGATIVE) Alejandro Results last 24 hrs: Microbiology 05/15/17 09:10 Stool Aerobic Culture - Preliminary Stool / Feces - Stool, Liquid Med Orders - Current: Current Medications Acetaminophen (Tylenol) 650 mg PO Q4H PRN PRN Reason: Pain (Mild 1-3)/fever Calamine/Phenol (Calmoseptine) 0 gm TOP QID PRN PRN Reason: skin irritation Last Admin: 05/17/17 20:04 Dose: 1 applic Docusate Sodium (Colace) 100 mg PO BID PRN PRN Reason: Constipation Enoxaparin Sodium (Lovenox) 40 mg SUBCUT Q24H [facility] Last Admin: 05/17/17 20:03 Dose: 40 mg Ferrous Sulfate (Ferrous Sulfate) 324 mg PO DAILY [facility] Last Admin: 05/17/17 08:06 Dose: Not Given Hydromorphone HCl (Dilaudid) 0.5 - 1 mg IVPUSH Q1H PRN PRN Reason: Pain Last Admin: 05/17/17 20:04 Dose: 1 mg Lisinopril (Prinivil) 20 mg PO DAILY [facility] Last Admin: 05/17/17 08:07 Dose: 20 mg Metoprolol Succinate (Toprol Xl) 50 mg PO BEDTIME [facility] Last Admin: 05/17/17 20:01 Dose: 50 mg Metoprolol Succinate (Toprol Xl) 100 mg PO DAILY [facility] Last Admin: 05/17/17 08:27 Dose: 100 mg Mupirocin (Bactroban Oint) 0 gm TOP TID [facility] Last Admin: 05/17/17 20:03 Dose: Not Given Ondansetron HCl (Zofran) 4 mg IV Q4H PRN PRN Reason: Nausea/Vomiting Last Admin: 05/17/17 16:58 Dose: 4 mg Pantoprazole Sodium (Protonix Iv) 40 mg IVPUSH Q24H [facility] Last Admin: 05/17/17 07:52 Dose: 40 mg Potassium Chloride (Potassium Chloride Solution) 40 meq PO BIDMEALS [facility] Last Admin: 05/17/17 17:02 Dose: 40 meq Prochlorperazine Maleate (Compazine) 10 mg PO Q6H PRN PRN Reason: Nausea Last Admin: 05/16/17 07:04 Dose: 10 mg Discontinued Medications Aspirin (Halfprin) 81 mg PO DAILY [facility] Enoxaparin Sodium (Lovenox) 30 mg SUBCUT Q24H [facility] Last Admin: 05/13/17 15:13 Dose: 30 mg Ondansetron HCl 8 mg/ Sodium (Chloride) 54 mls @ 100 mls/hr IV ONETIME ONE Stop: 05/13/17 11:02 Last Admin: 05/13/17 10:49 Dose: 100 mls/hr Lactated Ringer's (Ringers, Lactated) 1,000 mls @ 125 mls/hr IV ASDIRECTED [facility] Last Admin: 05/13/17 10:47 Dose: 125 mls/hr Magnesium Sulfate/Dextrose 2 (gm/ Premix) 200 mls @ 100 mls/hr IV ONETIME ONE Stop: 05/13/17 13:44 Last Admin: 05/13/17 12:05 Dose: 100 mls/hr Sodium Chloride (Normal Saline) 1,000 mls @ 125 mls/hr IV ASDIRECTED [facility] Last Admin: 05/14/17 06:11 Dose: 125 mls/hr Potassium Chloride 40 meq/ (Premix) 100 mls @ 25 mls/hr IV ONETIME ONE Stop: 05/13/17 15:59 Last Admin: 05/13/17 14:33 Dose: 25 mls/hr Magnesium Sulfate/Dextrose 2 (gm/ Premix) 200 mls @ 100 mls/hr IV ONETIME ONE Stop: 05/14/17 09:59 Last Admin: 05/14/17 08:43 Dose: 100 mls/hr Sodium Chloride (Normal Saline) 500 mls @ 41.667 mls/hr IV ONETIME ONE Stop: 05/14/17 21:59 Last Admin: 05/14/17 10:24 Dose: 41.667 mls/hr Potassium Chloride 80 meq/ (Premix) 200 mls @ 16.667 mls/hr IV ONETIME ONE Stop: 05/14/17 21:59 Last Admin: 05/14/17 10:24 Dose: 16.667 mls/hr Sodium Chloride (Normal Saline) 500 mls @ 41.667 mls/hr IV ONETIME ONE Stop: 05/15/17 20:59 Last Admin: 05/15/17 09:55 Dose: 41.667 mls/hr Potassium Chloride 80 meq/ (Premix) 200 mls @ 16.667 mls/hr IV ONETIME ONE Stop: 05/15/17 20:59 Last Admin: 05/15/17 10:01 Dose: 16.667 mls/hr Magnesium Sulfate/Dextrose 2 (gm/ Premix) 200 mls @ 100 mls/hr IV ONETIME ONE Stop: 05/15/17 11:14 Last Admin: 05/15/17 10:09 Dose: 100 mls/hr Potassium Chloride 20 meq/ (Premix) 100 mls @ 25 mls/hr IV ONETIME ONE Stop: 05/16/17 12:21 Last Admin: 05/16/17 08:56 Dose: 25 mls/hr Magnesium Sulfate/Dextrose 2 (gm/ Premix) 200 mls @ 100 mls/hr IV ONETIME ONE Stop: 05/16/17 11:00 Last Admin: 05/16/17 09:14 Dose: 100 mls/hr Magnesium Sulfate/Dextrose 2 (gm/ Premix) 200 mls @ 100 mls/hr IV ONETIME ONE Stop: 05/17/17 11:28 Last Admin: 05/17/17 09:51 Dose: 100 mls/hr Potassium Chloride 20 meq/ (Premix) 100 mls @ 25 mls/hr IV ONETIME ONE Stop: 05/17/17 13:58 Last Admin: 05/17/17 10:11 Dose: 25 mls/hr Lisinopril (Prinivil) 40 mg PO DAILY [facility] Morphine Sulfate (Morphine) 1 - 2 mg IVPUSH Q2H PRN PRN Reason: Pain Last Admin: 05/17/17 19:18 Dose: 2 mg Lutein 20mgOwn Med () 1 tab PO DAILY [facility] Last Admin: 05/15/17 08:06 Dose: Not Given Pantoprazole Sodium (Protonix Iv) 40 mg IV ONETIME ONE Stop: 05/13/17 17:01 Last Admin: 05/13/17 17:07 Dose: 40 mg Potassium Chloride (Potassium Chloride Solution) 20 meq PO BIDMEALS [facility] Last Admin: 05/17/17 08:07 Dose: 20 meq - Problem List Review Problem List Initiated/Reviewed/Updated: Yes - My Orders Last 24 Hours: My Active Orders 05/17/17 09:28 Potassium Chloride [Potassium Chloride Solution] 40 meq PO BIDMEALS 05/17/17 19:21 HYDROmorphone [Dilaudid] 0.5 - 1 mg IVPUSH Q1H PRN
--- NOTE | 2017-05-18 15:02 | PCM.DCSUM1 ---
Discharge Summary - Hospital Course Free Text/Narrative:: Patient at 22:18 on 05/17/2017, she was a DNR. - Discharge Data Discharge Date: 05/17/17 Discharge Disposition: 20 Preliminary Cause of *Q: Multi System Organ Failure Event(s) Leading to Patient's *Q: Pateint had a diagnosis of gastric cancer and was receiving chemo therapy, she had become very weak and ill. she had decided she no longer wanted to contnue with chemo. Condition: - Discharge Plan Home Medications: Home Meds Ferrous Sulfate [Iron] 325 mg PO DAILY 12/14/13 [History] Lutein 1 tab PO DAILY 12/14/13 [History] Metoprolol Succinate [Toprol XL 100mg] 100 mg PO DAILY 12/14/13 [History] Metoprolol Succinate [Toprol XL] 50 mg PO BEDTIME 12/14/13 [History] Quinapril [Accupril] 40 mg PO DAILY 12/14/13 [History] atorvaSTATin [Lipitor] 40 mg PO BEDTIME 12/14/13 [History] Aspirin [Lo-Dose Aspirin EC] 81 mg PO DAILY 05/13/17 [History] Ondansetron HCl [Ondansetron] 8 mg PO Q8HR PRN 05/13/17 [History] Prochlorperazine Maleate 10 mg PO Q6HR PRN 05/13/17 [History] oxyCODONE HCl/Acetaminophen [oxyCODONE-Acetaminophen 5-325] 1 tab PO Q4H PRN 10/18 [History] - Patient Data Vitals - Most Recent: Last Vital Signs Temp 98.2 F 05/17/17 19:48 Pulse 125 H 05/17/17 20:01 Resp 24 H 05/17/17 19:48 BP 180/111 H 05/17/17 20:01 Pulse Ox 95 05/17/17 19:48 Weight - Most Recent: 126 lb 1.6 oz I&O - Last 24 hours: Intake & Output 05/17/17 05/18/17 05/18/17 22:59 06:59 14:59 Intake Total 1900 Balance 1900 OLIVIER Results - Last 24 hrs: Microbiology 05/15/17 09:10 Stool Aerobic Culture - Preliminary Stool / Feces - Stool, Liquid Med Orders - Current: Current Medications Discontinued Medications Acetaminophen (Tylenol) 650 mg PO Q4H PRN PRN Reason: Pain (Mild 1-3)/fever Aspirin (Halfprin) 81 mg PO DAILY [facility] Calamine/Phenol (Calmoseptine) 0 gm TOP QID PRN PRN Reason: skin irritation Last Admin: 05/17/17 20:04 Dose: 1 applic Docusate Sodium (Colace) 100 mg PO BID PRN PRN Reason: Constipation Enoxaparin Sodium (Lovenox) 30 mg SUBCUT Q24H [facility] Last Admin: 05/13/17 15:13 Dose: 30 mg Enoxaparin Sodium (Lovenox) 40 mg SUBCUT Q24H [facility] Last Admin: 05/17/17 20:03 Dose: 40 mg Ferrous Sulfate (Ferrous Sulfate) 324 mg PO DAILY [facility] Last Admin: 05/17/17 08:06 Dose: Not Given Hydromorphone HCl (Dilaudid) 0.5 - 1 mg IVPUSH Q1H PRN PRN Reason: Pain Last Admin: 05/17/17 20:04 Dose: 1 mg Ondansetron HCl 8 mg/ Sodium (Chloride) 54 mls @ 100 mls/hr IV ONETIME ONE Stop: 05/13/17 11:02 Last Admin: 05/13/17 10:49 Dose: 100 mls/hr Lactated Ringer's (Ringers, Lactated) 1,000 mls @ 125 mls/hr IV ASDIRECTED [facility] Last Admin: 05/13/17 10:47 Dose: 125 mls/hr Magnesium Sulfate/Dextrose 2 (gm/ Premix) 200 mls @ 100 mls/hr IV ONETIME ONE Stop: 05/13/17 13:44 Last Admin: 05/13/17 12:05 Dose: 100 mls/hr Sodium Chloride (Normal Saline) 1,000 mls @ 125 mls/hr IV ASDIRECTED [facility] Last Admin: 05/14/17 06:11 Dose: 125 mls/hr Potassium Chloride 40 meq/ (Premix) 100 mls @ 25 mls/hr IV ONETIME ONE Stop: 05/13/17 15:59 Last Admin: 05/13/17 14:33 Dose: 25 mls/hr Magnesium Sulfate/Dextrose 2 (gm/ Premix) 200 mls @ 100 mls/hr IV ONETIME ONE Stop: 05/14/17 09:59 Last Admin: 05/14/17 08:43 Dose: 100 mls/hr Sodium Chloride (Normal Saline) 500 mls @ 41.667 mls/hr IV ONETIME ONE Stop: 05/14/17 21:59 Last Admin: 05/14/17 10:24 Dose: 41.667 mls/hr Potassium Chloride 80 meq/ (Premix) 200 mls @ 16.667 mls/hr IV ONETIME ONE Stop: 05/14/17 21:59 Last Admin: 05/14/17 10:24 Dose: 16.667 mls/hr Sodium Chloride (Normal Saline) 500 mls @ 41.667 mls/hr IV ONETIME ONE Stop: 05/15/17 20:59 Last Admin: 05/15/17 09:55 Dose: 41.667 mls/hr Potassium Chloride 80 meq/ (Premix) 200 mls @ 16.667 mls/hr IV ONETIME ONE Stop: 05/15/17 20:59 Last Admin: 05/15/17 10:01 Dose: 16.667 mls/hr Magnesium Sulfate/Dextrose 2 (gm/ Premix) 200 mls @ 100 mls/hr IV ONETIME ONE Stop: 05/15/17 11:14 Last Admin: 05/15/17 10:09 Dose: 100 mls/hr Potassium Chloride 20 meq/ (Premix) 100 mls @ 25 mls/hr IV ONETIME ONE Stop: 05/16/17 12:21 Last Admin: 05/16/17 08:56 Dose: 25 mls/hr Magnesium Sulfate/Dextrose 2 (gm/ Premix) 200 mls @ 100 mls/hr IV ONETIME ONE Stop: 05/16/17 11:00 Last Admin: 05/16/17 09:14 Dose: 100 mls/hr Magnesium Sulfate/Dextrose 2 (gm/ Premix) 200 mls @ 100 mls/hr IV ONETIME ONE Stop: 05/17/17 11:28 Last Admin: 05/17/17 09:51 Dose: 100 mls/hr Potassium Chloride 20 meq/ (Premix) 100 mls @ 25 mls/hr IV ONETIME ONE Stop: 05/17/17 13:58 Last Admin: 05/17/17 10:11 Dose: 25 mls/hr Lisinopril (Prinivil) 40 mg PO DAILY [facility] Lisinopril (Prinivil) 20 mg PO DAILY [facility] Last Admin: 05/17/17 08:07 Dose: 20 mg Metoprolol Succinate (Toprol Xl) 50 mg PO BEDTIME [facility] Last Admin: 05/17/17 20:01 Dose: 50 mg Metoprolol Succinate (Toprol Xl) 100 mg PO DAILY [facility] Last Admin: 05/17/17 08:27 Dose: 100 mg Morphine Sulfate (Morphine) 1 - 2 mg IVPUSH Q2H PRN PRN Reason: Pain Last Admin: 05/17/17 19:18 Dose: 2 mg Mupirocin (Bactroban Oint) 0 gm TOP TID [facility] Last Admin: 05/17/17 20:03 Dose: Not Given Lutein 20mgOwn Med () 1 tab PO DAILY [facility] Last Admin: 05/15/17 08:06 Dose: Not Given Ondansetron HCl (Zofran) 4 mg IV Q4H PRN PRN Reason: Nausea/Vomiting Last Admin: 05/17/17 16:58 Dose: 4 mg Pantoprazole Sodium (Protonix Iv) 40 mg IVPUSH Q24H [facility] Last Admin: 05/17/17 07:52 Dose: 40 mg Pantoprazole Sodium (Protonix Iv) 40 mg IV ONETIME ONE Stop: 05/13/17 17:01 Last Admin: 05/13/17 17:07 Dose: 40 mg Potassium Chloride (Potassium Chloride Solution) 20 meq PO BIDMEALS [facility] Last Admin: 05/17/17 08:07 Dose: 20 meq Potassium Chloride (Potassium Chloride Solution) 40 meq PO BIDMEALS [facility] Last Admin: 05/17/17 17:02 Dose: 40 meq Prochlorperazine Maleate (Compazine) 10 mg PO Q6H PRN PRN Reason: Nausea Last Admin: 05/16/17 07:04 Dose: 10 mg *Q Meaningful Use (DIS) - VTE *Q VTE Criteria *Q: - Stroke *Q Stroke Criteria *Q: - AMI *Q AMI Criteria *Q:
== END 2017-05-17 23:40 | disposition expired | DRG 641 ==
LOC: CC.FCMC 10:10 → CC.MS 10:10 → UNDOADMIN 12:08 → CC.MS 14:18
PROVIDERS: ADMIT Physician Assistant Medical; ATTEND Family Medicine
DX: E83.42 Hypomagnesemia (principal); C16.9 Malignant neoplasm of stomach, unspecified; E87.1 Hypo-osmolality and hyponatremia; T45.1X5A Adverse effect of antineoplastic and immunosuppressive drugs, initial encounter; E87.6 Hypokalemia; R53.1 Weakness; R11.10 Vomiting, unspecified; E11.9 Type 2 diabetes mellitus without complications; Z66 Do not resuscitate; Z93.1 Gastrostomy status
CPT/HCPCS: 36415; 80053; 81001; 82150; 83036; 83735; 85025; 86140; 96361; 96365; J2405; J3475; J7030; J7050; J7120; 80048; 81003; 87045; 87046; 87493; A9270-GY; C9113; J1170; J1650; J2270; J3480; J7040; Q0164